=== PATIENT | male | born 1935 | race Caucasian/White ===

== ENCOUNTER 2017-02-24 21:54 | Observation (INO) | payer OTHER ==
[~2017-02-24] VITALS: Ht 182.9 cm; Wt 82.5 kg
[~2017-02-24 21:54] MED LIST: ASPIR-LOW81 MG PO; AUGMENTIN875 MG PO; CALCIUM 600 +1 EA15 PO; CIPRO500 MG PO; FLOMAX0.4 MG PO; IBUPROFEN600 MG PO; KEFLEX500 MG PO; LISINOPRIL10 MG PO; LOPRESSOR50 MG PO; NAPROSYN500 MG PO; PLAVIX75 MG PO; PRAVASTATIN SOD40 MG PO; PROTONIX40 MG PO
[2017-02-24 22:38] LABS: EOSINOPHIL (%) 0.8 % (0-5); HEMATOCRIT 43.9 % (38.0-50.0); IMMATURE GRANULOCYTE (%) 0.2 % (0.0-0.7); INSTRUMENT ABS NEUTROPHIL CT 3.9 K/uL; LYMPHOCYTE COUNT 0.9 K/uL (1.0-2.8); MCH 33.6 PG (29.0-34.0); MCV 101.6 FL (86-99); MEAN PLAT.VOLUME 10.3 uM^3 (9.0-12.4); MONOCYTE (%) 8.3 % (3-12); MONOCYTE COUNT 0.4 K/uL (0-0.8); NEUTROPHIL (%) 73.9 % (45-76); NEUTROPHIL COUNT 3.9 K/uL (1.8-6.4); PLATELET COUNT 125 K/uL (156-360); RBC DIS.WIDTH-CV 15.1 % (11.8-14.6); RBC DIS.WIDTH-SD 57.3 % (39-53); RED BLOOD COUNT 4.32 M/uL (4.00-5.50); WHITE BLOOD COUNT 5.3 K/uL (4.1-10.2)
[2017-02-24 22:47] LABS: INTER. NORMALIZED RATIO 0.9; PROTHROMBIN TIME 10.3 SEC (10.2-12.9)
[2017-02-24 22:49] LABS: PTT 32.6 SEC (25-37)
[2017-02-24 23:16] LABS: CHLORIDE 107 mEq/L (99-109); POTASSIUM 4.2 mEq/L (3.7-5.4); SODIUM 145 mEq/L (136-147)
[2017-02-24 23:18] LABS: GLUCOSE 87 mg/dL (70-99)
[2017-02-24 23:19] LABS: ANION GAP 12 MEQ/L (2-14)
[2017-02-24 23:21] LABS: TROP-I INTERPRETATION NEGATIVE; TROPONIN-I 0.15 ng/mL (0.0-0.30)
[2017-02-24 23:22] LABS: GFR ESTIMATE (CALCULATED) > 59 mL/min/
[2017-02-24 23:23] LABS: UREA NITROGEN (BUN) 13 mg/dL (9-23)
[2017-02-24 23:32] LABS: AMPHETAMINE NEGATIVE (500 ng/mL); BARBITURATES NEGATIVE (200 ng/mL); BENZODIAZEPINES NEGATIVE (150 ng/mL); COCAINE NEGATIVE (150 ng/mL); INTERNAL CONTROLS VALID? YES; METHADONE NEGATIVE (200 ng/mL); METHAMPHETAMINE NEGATIVE (500 ng/mL); OPIATES (MORPHINE) NEGATIVE (100 ng/mL); OXYCODONE NEGATIVE (100 ng/mL); PHENCYCLIDINE NEGATIVE (25 ng/mL); PROPOXYPHENE NEGATIVE (300 ng/mL); THC CANNABINOIDS NEGATIVE (50 ng/mL); TRICYCLIC ANTIDEPRESSANTS NEGATIVE (300 ng/mL)
[2017-02-25 00:04] LABS: TOTAL BILIRUBIN 1.4 mg/dL (0.0-1.0)
[2017-02-25 00:05] LABS: ALKALINE PHOSPHATASE 84 IU/L (3-129); SERUM ETHYL ALCOHOL 246 mg/dL
[2017-02-25 00:07] LABS: DIRECT BILIRUBIN 0.7 mg/dL (0.0-0.3)
[2017-02-25 00:08] LABS: CREATINE KINASE 152 IU/L (1-294)
[2017-02-25 00:51] LABS: ADD MIUA? YES; BILIRUBIN NEGATIVE; BLOOD NEGATIVE; COLOR YELLOW ((YELLOW)); GLUCOSE (STRIP) NEGATIVE; KETONES NEGATIVE; LEUKOCYTES LARGE; NITRITE POSITIVE; PROTEIN (STRIP) NEGATIVE; SPECIFIC GRAVITY 1.013 (1.000-1.030); UROBILINOGEN 0.2 MG/DL (0.2-1.0)
[2017-02-25 01:35] LABS: RED BLOOD CELLS NONE SEEN /HPF (0-5); WHITE BLOOD CELLS TNTC /HPF (0-5)
[2017-02-25 01:36] LABS: BACTERIA 1+ /HPF; CASTS NONE SEEN /LPF; CRYSTALS NONE SEEN; EPITHELIAL CELLS RARE /HPF; MUCUS NONE SEEN /LPF
[2017-02-25 02:51] LABS: TROP-I INTERPRETATION NEGATIVE; TROPONIN-I 0.16 ng/mL (0.0-0.30)
[2017-02-25 09:18] LABS: TROP-I INTERPRETATION NEGATIVE; TROPONIN-I 0.15 ng/mL (0.0-0.30)
[2017-02-25 09:24] VITALS: BP 146/100
[2017-02-25 11:25] VITALS: BP 141/100
[2017-02-25] MEDS ORDERED: FINASTERIDE5 MG PO (11:38)
[2017-02-25] MEDS ORDERED: LISINOPRIL10 MG PO (11:39)
[2017-02-25 16:30] VITALS: BP 123/78
[2017-02-25 20:00] VITALS: BP 110/69
[2017-02-25 20:08] LABS: METH RESISTANT S AUREUS PCR NEGATIVE (NEGATIVE)
[2017-02-25 20:16] LABS: PROBE CHECK PASS; SPECIMEN PROCESSING CONTROL PASS
[2017-02-25 23:55] VITALS: BP 95/61
[2017-02-26 03:56] VITALS: BP 123/77
[2017-02-26 05:29] LABS: HEMATOCRIT 37.8 % (38.0-50.0); MCH 34.6 PG (29.0-34.0); MCHC 34.4 G/DL (30.0-36.0); MCV 100.5 FL (86-99); MEAN PLAT.VOLUME 10.8 uM^3 (9.0-12.4); PLATELET COUNT 108 K/uL (156-360); RBC DIS.WIDTH-CV 15.3 % (11.8-14.6); RBC DIS.WIDTH-SD 57.1 % (39-53); RED BLOOD COUNT 3.76 M/uL (4.00-5.50); WHITE BLOOD COUNT 6.4 K/uL (4.1-10.2)
[2017-02-26 05:49] LABS: ANION GAP 8 MEQ/L (2-14); CHLORIDE 106 MEQ/L (99-109); GFR ESTIMATE (CALCULATED) > 59 mL/min/; GLUCOSE 89 mg/dL (70-99); POTASSIUM 3.6 MEQ/L (3.7-5.4); SAMPLE HEMOLYSIS CHECK 0; SAMPLE ICTERIC CHECK 1; SAMPLE LIPEMIA CHECK 0; SODIUM 140 MEQ/L (136-147); UREA NITROGEN (BUN) 17 mg/dL (9-23)
[2017-02-26 07:24] VITALS: BP 111/76
[2017-02-26 08:15] LABS: TROP-I INTERPRETATION NEGATIVE; TROPONIN-I 0.11 ng/mL (0.0-0.30)
[2017-02-26] MEDS ORDERED: FOLIC ACID1 MG PO (11:05)
[2017-02-26] MEDS ORDERED: B-1100 MG PO (11:05)
[2017-02-26] MEDS ORDERED: APRESOLINE50 MG PO (11:08)
[2017-02-26] MEDS ORDERED: AUGMENTIN875 MG PO (11:29)
[2017-02-26 11:44] VITALS: BP 104/63
== END 2017-02-26 15:00 | disposition home or self-care (01) ==
LOC: EME → EDBD 21:54 → EME 21:54 → EDOF 02-25 06:25 → 4EAST 02-25 06:25 → EDOF 02-25 06:25 → ENRESERV 02-25 06:30 → CANRESERV 02-25 06:30 → EDOF 02-25 06:50 → 4EAST 02-25 06:50 → EDOF 02-25 06:50 → ENRESERV 02-25 06:57 → 4EAST 02-25 09:16 → ENPENDDIS 02-26 → 4EAST 02-26 11:06
PROVIDERS: Emergency Medicine; Hospitalist; Internal Medicine
DX: F10.129 Alcohol abuse with intoxication, unspecified (principal); Y90.8 Blood alcohol level of 240 mg/100 ml or more; S02.2XXA Fracture of nasal bones, initial encounter for closed fracture; N39.0 Urinary tract infection, site not specified; R00.1 Bradycardia, unspecified; R17 Unspecified jaundice; I10 Essential (primary) hypertension; I35.0 Nonrheumatic aortic (valve) stenosis; I44.0 Atrioventricular block, first degree; Z86.73 Personal history of transient ischemic attack (TIA), and cerebral infarction without residual deficits; M25.511 Pain in right shoulder; Z85.21 Personal history of malignant neoplasm of larynx; Z93.0 Tracheostomy status
CPT/HCPCS: 70450; 70486; 71010; 72125; 73030; 80048; 80076; 81003; 82140; 82550; 82550 91; 83690; 83735; 84484; 85025; 85027; 85610; 85730; 87086; 87641; 92610 GN; 93005; 93306; 99281; 99285; G0378; G0480; J0696; J1644; J2060; J3411; J3475; J3480; J7030; J7050